=== PATIENT | female | born 1980 | race Hispanic/Latino ===

== ENCOUNTER 2017-11-02 02:36 | Inpatient (IN) | payer MEDICAID ==
--- NOTE | 2017-11-02 04:25 | ED PDOC ---
HPI: Psych/Substance Abuse Time Seen by Provider: 11/02/17 03:30 Chief Complaint (Nursing): Psychiatric Evaluation Chief Complaint (Provider): Psychiatric Evaluation History Per: Patient History/Exam Limitations: no limitations Onset/Duration Of Symptoms: Days Current Symptoms Are (Timing): Still Present Associated Symptoms: Depression, Suicidal Thoughts. denies: Suicidal Plan Additional Complaint(s): Cassi Rob is a 38 year old female with no past medical history who is presenting to the ED for evaluation of depression and associated suicidal thoughts, onset 2 weeks ago. Patient states that she has no concrete plan but wants to harm herself. She has no other medical complaints at this time and denies any homicidal ideation. PMD: none provided Past Medical History Reviewed: Historical Data, Nursing Documentation, Vital Signs Vital Signs: Last Vital Signs Temp 98 F 11/02/17 02:49 Pulse 79 11/02/17 02:49 Resp 18 11/02/17 02:49 BP 146/87 11/02/17 02:49 Pulse Ox 97 11/02/17 02:49 - Medical History PMH: No Chronic Diseases - Surgical History Surgical History: No Surg Hx - Family History Family History: States: Unknown Family Hx - Social History Current smoker - smoking cessation education provided: No Alcohol: None Drugs: Denies - Home Medications Home Medications: Ambulatory Orders Medication Instructions Recorded No Known Home Med 11/02/17 - Allergies Allergies/Adverse Reactions: Allergies Allergy/AdvReac Type Severity Reaction Status Date / Time No Known Allergies Allergy Verified 11/02/17 02:49 Review of Systems ROS Statement: Except As Marked, All Systems Reviewed And Found Negative Psych: Positive for: Suicidal ideation. Negative for: Other (homicidal ideation ) Physical Exam - Reviewed Nursing Documentation Reviewed: Yes Vital Signs Reviewed: Yes - Physical Exam Appears: Positive for: Well, Non-toxic, No Acute Distress Head Exam: Positive for: ATRAUMATIC, NORMAL INSPECTION, NORMOCEPHALIC Skin: Positive for: Normal Color, Warm, DRY Eye Exam: Positive for: EOMI, Normal appearance, PERRL ENT: Positive for: Normal ENT Inspection Neck: Positive for: Normal, Painless ROM Cardiovascular/Chest: Positive for: Regular Rate, Rhythm. Negative for: Murmur Respiratory: Positive for: Normal Breath Sounds. Negative for: Respiratory Distress Gastrointestinal/Abdominal: Positive for: Normal Exam, Soft. Negative for: Tenderness Back: Positive for: Normal Inspection Extremity: Positive for: Normal ROM. Negative for: Deformity, Swelling Neurologic/Psych: Positive for: Alert, Oriented. Negative for: Motor/Sensory Deficits - Laboratory Results Result Diagrams: 11/02/17 06:13 11/02/17 06:13 - ECG O2 Sat by Pulse Oximetry: 97 (RA) Pulse Ox Interpretation: Normal Medical Decision Making Medical Decision Making: Time: 4:01 Impression: Depression, Suicidal Ideation Plan: --Crisis Evaluation --1:1 Observation Vital signs are stable. Labs reviewed. In my opinion there are no current acute medical conditions that contraindicate the placement of this patient in a psychiatric unit. Scribe Attestation: Documented by, Dulce Silverman acting as a scribe for Beatriz Diaz MD. Provider Scribe Attestation: All medical record entries made by the Scribe were at my direction and personally dictated by me. I have reviewed the chart and agree that the record accurately reflects my personal performance of the history, physical exam, medical decision making, and the department course for this patient. I have also personally directed, reviewed, and agree with the discharge instructions and disposition. Disposition - Clinical Impression Clinical Impression: Depression - Patient ED Disposition Is Patient to be Admitted: Yes Counseled Patient/Family Regarding: Studies Performed, Diagnosis - Disposition Disposition Time: 06:30 Condition: FAIR - Pt Status Changed To: Hospital Disposition Of: Inpatient - Admit Certification Admit to Inpatient:: After my assessment, the patient will require hospitalization for at least two midnights. This is because of the severity of symptoms shown, intensity of services needed, and/or the medical risk in this patient being treated as an outpatient. - POA Present On Arrival: None
[2017-11-02 06:16] LABS: BASO % 0.6 % (0.0-2.0); EOS # 0.4 K/uL (0.0-0.7); EOS % 4.8 % (0.0-4.0); HEMOGLOBIN 11.5 g/dL (12.0-16.0); LYMPH # 3.4 K/uL (1.0-4.3); LYMPH % 47.3 % (20.0-40.0); MEAN CELL VOLUME 84.9 fl (81.0-99.0); MEAN CORPUSCULAR HEMOGLOBIN 28.3 pg (27.0-31.0); MEAN CORPUSCULAR HGB CONC 33.3 g/dL (33.0-37.0); MEAN PLATELET VOLUME 7.9 fl (7.2-11.7); MONO # 0.6 K/uL (0.0-0.8); MONO % 7.8 % (0.0-10.0); NEUT # 2.9 K/uL (1.8-7.0); NEUT % 39.5 % (50.0-75.0); RBC 4.08 Mil/uL (3.80-5.20); RED CELL DISTRIBUTION WIDTH 15.9 % (11.5-14.5); WHITE BLOOD COUNT 7.2 K/uL (4.8-10.8)
[2017-11-02 06:26] LABS: BLOOD UREA NITROGEN 8 mg/dl (7-17); CALCIUM 8.6 mg/dL (8.4-10.2); GFR AFRICAN-AMERICAN > 60; GFR NON-AFRICAN AMERICAN > 60
[2017-11-02 06:35] LABS: SQUAMOUS EPITHIAL 10 /hpf (0-5); URINE BACTERIA RARE (<OCC); URINE BILIRUBIN NEGATIVE (NEGATIVE); URINE BLOOD NEGATIVE (NEGATIVE); URINE CLARITY CLOUDY (Clear); URINE COLOR YELLOW (YELLOW); URINE GLUCOSE (UA) NEG (Normal); URINE LEUKOCYTE ESTERASE SMALL Leu/uL (Negative); URINE PROTEIN NEGATIVE (NEGATIVE); URINE UROBILINOGEN 0.2-1.0 mg/dL (0.2-1.0)
[2017-11-02 06:43] LABS: BARBITURATES, UR NEGATIVE (NEGATIVE); BENZODIAZEPINES, UR NEGATIVE (NEGATIVE); OPIATES, UR POSITIVE (NEGATIVE); PHENCYCLIDINE, UR NEGATIVE (NEGATIVE)
[2017-11-02] MEDS ORDERED: Alum-Mag Hydrox-Simethicone Susp (30 mL) PO PRN (07:51)
[2017-11-02] MEDS ORDERED: DiphenhydrAMINE 50 mg/ml Inj IM PRN (07:51)
[2017-11-02] MEDS ORDERED: Magnesium Hydroxide Susp 30 ml UD PO PRN (07:51)
--- NOTE | 2017-11-02 08:32 | PCM.PSYCH ---
Initial Psychiatric Evaluation - Initial Psychiatric Evaluation Type of Admission: Voluntary Legal Status: Capacity Chief Complaint (in patient's own words): "I'm depressed." Patient's Reaction to Hospitalization: HPI: 37 yo female w/ h/o depression, heroin and xanax abuse, presents with worsening depression and suicidal ideation to overdose on drugs in the context of continued heroin and xanax abuse. She reports depressed mood, sleep/ appetite disturbances, feelings of hopelessness. No AH/VH/paranoia/delusions. 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; +Heroin use (12 bags/day); Xanax abuse (4 mg/day), Smokes 10 cig/day Current Medications: Active Medications Generic Name Dose Route Start Last Admin Trade Name Freq PRN Reason Stop Dose Admin Acetaminophen 650 mg 11/02/17 07:51 Tylenol 325mg Tab PO Q4 PRN Pain, moderate (4-7) Al Hydrox/Mg Hydrox/Simethicone 30 ml 11/02/17 07:51 Maalox Plus 30 Ml PO Q4 PRN Dyspepsia Bupropion HCl 75 mg 11/02/17 09:00 Wellbutrin PO DAILY NADIRA Diphenhydramine HCl 50 mg 11/02/17 07:51 Benadryl IM Q6 PRN Extrapyramidal S/S Unable PO Diphenhydramine HCl 50 mg 11/02/17 07:51 Benadryl PO Q6 PRN Extrapyramidal Symptoms Haloperidol 5 mg 11/02/17 07:51 Haldol PO Q4 PRN Agitation Haloperidol Lactate 5 mg 11/02/17 07:51 Haldol IM Q4 PRN Agitation, Unable to Take PO Loperamide HCl 2 mg 11/02/17 08:28 Imodium PO QID PRN Diarrhea Lorazepam 2 mg 11/02/17 07:51 Ativan IM Q4 PRN Anxiety/Agitation,Unable PO Lorazepam 1 mg 11/02/17 08:26 Ativan PO 11/02/17 08:27 STAT STA Lorazepam 1 mg 11/02/17 08:28 Ativan PO Q4 PRN Anxiety/Agitation Magnesium Hydroxide 30 ml 11/02/17 07:51 Milk Of Magnesia PO HS PRN Constipation Nicotine 1 patch 11/02/17 09:00 Nicoderm Cq TD DAILY NADIRA Ondansetron HCl 4 mg 11/02/17 08:28 Zofran Tab PO Q6 PRN Nausea/Vomiting Past Psychiatric History - Past Psychiatric History Pertinent Medical Hx (Current Medical&Sleep Prob, Allergies): Allergies Allergy/AdvReac Type Severity Reaction Status Date / Time No Known Allergies Allergy Verified 11/02/17 02:49 No Known Home Med 11/02/17 Review of Systems - Psychiatric Psychiatric: As Per HPI, Abnormal Sleep Pattern, Anhedonia, Anxiety, Change in Appetite, Depression, Difficulty Concentrating, Hopelessness, Suicidal Ideation Mental Status Examination - Personal Presentation Personal Presentation: Looks stated age - Affect Affect: Constricted, Depressed - Motor Activity Motor Activity: Calm - Reliability in Providing Information Reliability in Providing Information: Fair - Speech Speech: Organized - Mood Mood: Depressed, Anxious - Formal Thought Process Formal Thought Process: No Impairment - Hallucinations/Delusions Additional comments: No AH/VH/paranoia/delusions - Obsessions/Compulsions Obsessions: No Compulsions: No - Cognitive Functions Orientation: Person, Place, Situation, Time Sensorium: Alert Attention/Concentration: Attentive Estimate of Intelligence: Average Judgement: Intact, as evidence by: Insight regarding need for hospitalization Memory: Recent intact, as evidence by: Ability to recall events of the day, Remote intact, as evidenced by: Abilit to recall sig. life events, Remote intact , as evidenced by: Ability to recall historical events - Risk Risk: Suicidal - Strength & Assets Inventory Strength & Assets Inventory: Cooperative DSM 5 DX - DSM 5 DSM 5 Diagnosis: Substance Induced Mood Disorder vs MDD; Opioid Use Disorder; Benzodiazepine Use Disorder - Recommended/Plan of Treatment Treatment Recommendations and Plan of Treatment: Substance Induced Mood Disorder vs MDD; Opioid Use Disorder; Benzodiazepine Use Disorder -Admit to psychiatry unit -Individual and group therapy provided -Start Wellbutrin -PRNs for Opioid withdrawal (Zofran, Clonidine, Ibuprofen, Imodium) -Ativan PRN benzo withdrawal -Psychoeducation re: dangers of substance abuse -Nicotine patch -Disposition planning Projected ELOS: 6-9 days Discharge Plan and Discharge Criteria: Discharge when patient is psychiatrically stable - Smoking Cessation Smoking Cessation Initiated: Yes
[2017-11-02 10:48] VITALS: O2SAT 97
--- NOTE | 2017-11-02 15:53 | PCM.BM ---
<Love Hair - Last Filed: 11/02/17 15:51> Treatment Plan Problems - Problems identified on initial assessmt Medication nonadherence Date Initiated: 11/02/17 Time Initiated: 15:54 Assessment reference: NA Status: Active Defensive Coping Date Initiated: 11/02/17 Assessment reference: NA Status: Active Hopelessness/Helpness Date Initiated: 11/02/17 Assessment reference: NA Status: Active Treatment assets and liabiliti Patient Assests: adapts well, cooperative, ADL independent Patient Liabilities: poor support system, substance abuse - Milieu Protocol Maintain good personal hygiene: daily Encourage regular showers, daily Remind patient to perform daily oral care, daily Assist patient to perform ADL's Maintain personal safety: daily Educate patient to report safety concerns to staff, daily Monitor environment for contraband/sharps, every shift Educate patient to report safety concerns to staff, every shift Monitor environment for contraband/sharps Medication safety: Monitor for expected outcome, potential side effects: daily, Assess barriers to learning: daily, Assess readiness for medication education: daily Milieu Narrative: Substance Induced Mood Disorder vs MDD; Opioid Use Disorder; Benzodiazepine Use Disorder -Admit to psychiatry unit -Individual and group therapy provided -Start Wellbutrin -PRNs for Opioid withdrawal (Zofran, Clonidine, Ibuprofen, Imodium) -Ativan PRN benzo withdrawal -Psychoeducation re: dangers of substance abuse -Nicotine patch -Disposition planning Discharge/Continuing Care - Treatment Team Participation Patient/Family/SO Statement: Substance Induced Mood Disorder vs MDD; Opioid Use Disorder; Benzodiazepine Use Disorder -Admit to psychiatry unit -Individual and group therapy provided -Start Wellbutrin -PRNs for Opioid withdrawal (Zofran, Clonidine, Ibuprofen, Imodium) -Ativan PRN benzo withdrawal -Psychoeducation re: dangers of substance abuse -Nicotine patch -Disposition planning <Matilda Prince - Last Filed: 11/04/17 08:32> - Diagnosis (1) Substance induced mood disorder Status: Acute Interventions: Medication management, Individual and group therapy, Psychoeducation 11/04/17 08:32 (2) Benzodiazepine abuse Status: Acute Interventions: Medication management, Individual and group therapy, Psychoeducation 11/04/17 08:32 (3) Heroin abuse Status: Acute Interventions: Medication management, Individual and group therapy, Psychoeducation 11/04/17 08:32
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
[2017-11-03 09:21] VITALS: RESP 18
--- NOTE | 2017-11-03 13:28 | PCM.PYCHPN ---
Psychiatric Progress Note - Psychiatric Progress Note Patient seen today, length of contact: Patient evaluated, case discussed with team, chart reviewed Patient Chief Complaint: "I'm feeling better." Problems Identified/Issues Discussed: Patient submitted a 48 hour letter requesting to be discharged. She reports that her mood has improved. She denies acute ideation to harm self or others. She reports acute anxiety, but denies benzo withdrawal symptoms. Psychoeducation provided on the danger of substance abuse. No adverse effects to Wellbutrin reported. Medication Change: No Medical Record Reviewed: Yes Consults ordered or reviewed: Medicine consult Mental Status Examination - Cognitive Function Orientation: Person, Place, Situation, Time Memory: Intact Attention: WNL Concentration: WNL Association: WNL Fund of Knowledge: [facility] Decription of patient's judgement and insights: Poor I/J re: substance abuse; Psychoeducation provided - Mood Mood: Neutral - Affect Affect: Broad - Speech Speech: Appropriate - Formal Thought Process Formal Thought Process: No Impairment Psychotic Thoughts and Behaviors: Denies AH/VH/paranoia/delusions - Suicidal Ideation Suicidal Ideation: No - Homicidal Ideation Homicidal Ideation: No Goal/Treatment Plan - Goal/Treatment Plan Need for Continued Stay: Discharge may exacerbated symptoms Progress Toward Problem(s) and Goals/Treatment Plan: Substance Induced Mood Disorder; Opioid Use Disorder; Benzodiazepine Use Disorder -Individual and group therapy provided -Contiue Wellbutrin -PRNs for Opioid withdrawal (Zofran, Clonidine, Ibuprofen, Imodium) -Ativan PRN benzo withdrawal -Psychoeducation re: dangers of substance abuse -Nicotine patch -Patient submitted a 48 hour letter requesting discharge; will observe overnight and likely discharge tomorrow if patient continues to improve clinically Estimated Date of D/C: 11/04/17 - Smoking Cessation Smoking Cessation Initiated: Yes
--- NOTE | 2017-11-04 07:49 | PCM.PYCHDC ---
Mental Status Examination - Mental Status Examination Orientation: Person, Place, Situation, Time Memory: Intact Mood: Neutral Affect: Broad Speech: Appropriate Attention: WNL Concentration: WNL Association: WNL Fund of Knowledge: WNL Formal Thought Process: No Impairment Description of patient's judgement and insight: Poor I/J re: substance abuse; Psychoeducation provided Psychotic Thoughts and Behaviors: Denies AH/VH/paranoia/delusions Suicidal Ideation: No Current Homicidal Ideation?: No Discharge Summary - Discharge Note Reason for Hospitalization: HPI: 37 yo female w/ h/o depression, heroin and xanax abuse, presents with worsening depression and suicidal ideation to overdose on drugs in the context of continued heroin and xanax abuse. She reports depressed mood, sleep/ appetite disturbances, feelings of hopelessness. No AH/VH/paranoia/delusions. 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 Reason for request. 2. Findings. 3. Follow-up Consultations: Medicine consult Summary of Hospital Course include:: 1. Description of specific treatment plan utilized for patients during their course of treatmen. 2. Summarize the time- course for resolution of acute symptoms and/or regressed behaviors. 3. Describe issues identified and worked on during hospitalization. 4. Describe medication utilized. 5. Describe medical problems identified and treated. 6. Reassessment of suicide risk Summary of Hospital Course: Patient was admitted to the psychiatry unit. Individual and group therapy provided. Patient was started on Wellbutrin. She submitted a 48 hr letter requesting to be discharged and does not currently meet criteria for involuntary commitment. She denies acute depression/anxiety/AH/VH/paranoia/SI/ HI. She currently is declining an aftercare appointment. 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 - Final Diagnosis (DSM 5) Condition upon Discharge: STABLE DSM 5: Substance Induced Mood Disorder; Opioid Use Disorder; Benzodiazepine Use Disorder Disposition: HOME/ ROUTINE Follow-up Treatment Plan: Substance Induced Mood Disorder; Opioid Use Disorder; Benzodiazepine Use Disorder -Continue Wellbutrin -No current signs/symptoms of benzo withdrawal -Discharge Prescriptions/Medication Reconciliation: buPROPion [Wellbutrin] 75 mg PO DAILY #30 tab - Smoking Cessation Smoking Cessation Medication prescribed: Yes Reason for not providing: Provided during admission; pt declined outpatient prescription - Antipsychotic Medications Pt discharged on 2 or more routine antipsychotic medications: No
[2017-11-04 09:31] VITALS: BP 145/89; PULSE 75; TEMP 96.5
[2017-11-04 14:58] LABS: HDL CHOLESTEROL 30 MG/DL (30-70)
[2017-11-04 15:08] LABS: LDL CHOLESTEROL 104 mg/dL (0-129)
== END 2017-11-04 13:09 | disposition home or self-care (01) | DRG 748 ==
LOC: H.ER 02:36 → H.ERHOLD 06:49 → H.PSYCH 12:19
PROVIDERS: ADMIT Psychiatry & Neurology Psychiatry; ATTEND Psychiatry & Neurology Psychiatry
PROC: HZ56ZZZ Individual Psychotherapy for Substance Abuse Treatment, Psychoeducation (ICD-10-PCS; principal; 2017-11-02)
PROC: GZHZZZZ Group Psychotherapy (ICD-10-PCS; 2017-11-02)
DX: F11.94 Opioid use, unspecified with opioid-induced mood disorder (principal); F13.94 Sedative, hypnotic or anxiolytic use, unspecified with sedative, hypnotic or anxiolytic-induced mood disorder; F32.9 Major depressive disorder, single episode, unspecified; F41.9 Anxiety disorder, unspecified; R45.851 Suicidal ideations; Z91.14 Patient's other noncompliance with medication regimen; F17.210 Nicotine dependence, cigarettes, uncomplicated; Z62.810 Personal history of physical and sexual abuse in childhood; F14.90 Cocaine use, unspecified, uncomplicated